=== PATIENT | male | born 1955 | race African-American/Black ===

== ENCOUNTER 2018-08-07 07:18 | Emergency (ER) | payer MEDICAID ==
[2018-08-07] MEDS ORDERED: KETOROLAC TROMETHAMINE 60 MG/2 ML SDV IM ONE (08:17)
[2018-08-07] MEDS ORDERED: FENTANYL CITRATE INJ/PF 100 MCG/2 ML AMPUL IM ONE (08:17)
--- NOTE | 2018-08-07 08:19 | ER Document Report ---
ED Extremity Problem, Lower - General Chief Complaint: Leg Pain Stated Complaint: THIGH PAIN Time Seen by Provider: 08/07/18 07:44 Notes: 62-year-old male to the emergency department complaining of pain in the left buttock region radiating down the back of his left leg/thigh. States the symptoms have been present for over 1 month had ultrasound of his leg a few weeks ago which was negative for DVT. Was told to use anti-inflammatories. States that he needs something stronger. TRAVEL OUTSIDE OF THE [place] IN LAST 30 DAYS: No - HPI Patient complains to provider of: Pain Occurred: Other - Over 1 month ago Where: Home Quality of pain: Achy Severity: Moderate Pain Level: 3 - Related Data Allergies/Adverse Reactions: No Known Allergies Allergy (Verified 08/07/18 07:19) Past Medical History - General Information source: Patient - Social History Smoking Status: Never Smoker Frequency of alcohol use: None Drug Abuse: None Lives with: Family Family History: Reviewed & Not Pertinent, Other - Dementia Patient has suicidal ideation: No Patient has homicidal ideation: No - Past Medical History Cardiac Medical History: Reports: Hx Hypertension Renal/ Medical History: Denies: Hx Peritoneal Dialysis Musculoskeletal Medical History: Reports Hx Gout Traumatic Medical History: Reports: Hx Fractures - left tibia Past Surgical History: Reports: Hx Orthopedic Surgery - Right ACL reconstruction - Immunizations Hx Diphtheria, Pertussis, Tetanus Vaccination: Yes - 2012 Review of Systems - Review of Systems Notes: Constitutional: denies: Chills, Diaphoresis, Fever, Malaise, Weakness EENT: denies: Eye discharge, Blurred vision, Tearing, Double vision, Nose congestion, Nose discharge, Throat swelling, Mouth pain Cardiovascular: denies: Palpitations, Heart racing, Orthopnea, Dyspnea, Chest pain Respiratory: denies: Cough, Hurts to breathe, Wheezing, Shortness of breath Gastrointestinal: denies: Abdominal pain, Diarrhea, Nausea, Vomiting, Black stools, bright red blood in stool Genitourinary: denies: Burning, Dysuria, Discharge, Frequency, Flank pain, Hematuria Musculoskeletal: Mild left lumbar back pain, radiculopathy down the left leg with pain in the left leg in the posterior thigh Hematologic/Lymphatic: denies: Anemia, Easy bleeding, Easy bruising, Blood clots Neurological/Psychological: denies: Confusion, Dementia, Depression, Loss of consciousness Skin: No lesions, no masses, no skin breakdown, no abscesses Physical Exam - Vital signs Vitals: Temp Pulse Resp BP Pulse Ox 97.3 F 77 20 166/96 H 98 08/07/18 07:22 08/07/18 07:22 08/07/18 07:22 08/07/18 07:22 08/07/18 07:22 Interpretation: Normal - General General appearance: Appears well, Alert - HEENT Head: Normocephalic, Atraumatic Eyes: Normal Pupils: PERRL - Respiratory Respiratory status: No respiratory distress Chest status: Nontender Breath sounds: Normal Chest palpation: Normal - Cardiovascular Rhythm: Regular Heart sounds: Normal auscultation Murmur: No - Abdominal Inspection: Normal Distension: No distension Bowel sounds: Normal Tenderness: Nontender Organomegaly: No organomegaly - Back Back: Normal, Nontender Notes: There is positive straight leg when raising the left leg. There is pain with adduction of the left leg where pain is most prominent in the piriformis and gluteus muscle on the left. - Extremities General upper extremity: Normal inspection, Nontender, Normal color, Normal ROM , Normal temperature General lower extremity: Normal inspection, Normal color, Normal ROM, Normal temperature, Normal weight bearing, Other - The left lower extremity demonstrates no edema. There is no Homans sign. There is no swelling or tenderness in the calf. Pulses are present in the dorsalis pedis and posterior tibialis of the left.. No: Emmy's sign - Neurological Neuro grossly intact: Yes Cognition: Normal Orientation: AAOx4 Christoph Coma Scale Eye Opening: Spontaneous [place] Coma Scale Verbal: Oriented [place] Coma Scale Motor: Obeys Commands Christoph Coma Scale Total: 15 Speech: Normal Motor strength normal: LUE, RUE, LLE, RLE Sensory: Normal - Psychological Associated symptoms: Normal affect, Normal mood - Skin Skin Temperature: Warm Skin Moisture: Dry Skin Color: Normal Course - Re-evaluation Re-evalutation: 08/07/18 10:[address] 08/07/18 08:18 IMPRESSION: Diffuse degenerative changes lumbar spine. Diffuse degenerative changes in the lumbar spine but nothing acute. Patient having symptoms of radiculopathy. Patient is having no specific pain in the leg which is concerning for DVT. Has already had an ultrasound which was negative so unlikely this represent a blood clot. Patient has one finger placed at his low back and in the piriformis muscle at the area of worsening pain. At this time we will discharge and have him follow-up with his regular doctor. - Vital Signs Vital signs: Temp Pulse Resp BP Pulse Ox 97.3 F 77 20 166/96 H 98 08/07/18 07:22 08/07/18 07:22 08/07/18 07:22 08/07/18 07:22 08/07/18 07:22 Discharge - Discharge Clinical Impression: Low back pain radiating to left leg Condition: Good Disposition: HOME, SELF-CARE Instructions: Radiculopathy ([facility]), Sciatica ([facility]) Additional Instructions: In the event that you develop any swelling of the leg, pain in the calf, fever, shortness of breath or worsening symptoms please return for repeat evaluation. Referrals: YOUSUF WILKINS DO [Primary Care Provider] - Follow up as needed
--- NOTE | 2018-08-07 09:15 | RADIOLOGY REPORT (SQ) ---
EXAM DESCRIPTION: CT LUMBAR SPINE WITHOUT COMPLETED DATE/TIME: 08/07/2018 8:59 am REASON FOR STUDY: back pain and left leg radiculopathy COMPARISON: None. TECHNIQUE: Axial images acquired through the lumbar spine without intravenous contrast. Images revi ewed with lung, soft tissue and bone windows. Reconstructed coronal and sagittal MPR images reviewed . All images stored on PACS. All CT scanners at this facility use dose modulation, iterative reconstruction, and/or weight based d osing when appropriate to reduce radiation dose to as low as reasonably achievable (ALARA). [facility]: Dose Right [facility]: CareDose [facility]: Dose Right [facility]: Teradose 4D [facility]: [email or web address] RADIATION DOSE: 18.2 mGy. LIMITATIONS: None. FINDINGS: SEGMENTATION: Normal. Sacralization of L5 with a small L5-S1 disc space. ALIGNMENT: Minimal retrolisthesis of L3 over L4 VERTEBRAL BODIES: No fractures. No dislocation. No acute findings. DISCS: The T12-L1 and L1-2 levels are unremarkable. At L2-3, moderate central canal stenosis results from broad diffuse posterior disc bulging and bony s purring along with bulky bilateral facet and ligament hypertrophy. This is best shown on axial image 38 and sagittal image 24. There is mild bilateral inferior foraminal narrowing without exiting L2 n erve root impingement. At L3-4, moderate central canal stenosis results from broad diffuse posterior disc bulge and bony spu rring left greater than right, and bulky bilateral facet and ligament hypertrophy. Asymmetric flatte arturo of the leftward thecal sac at the takeoff of the proximal left L4 nerve root in the lateral rece ss. There is mild right foraminal narrowing. High-grade left foraminal narrowing at L3-4 with parti al effacement of fat around the exiting left L3 nerve root. At L4-5, moderate central canal stenosis results from broad diffuse posterior disc bulge and bony spu rring and moderate bilateral facet and ligament hypertrophy. There is flattening of the thecal sac b ilaterally in the lateral recesses containing the proximal L5 nerve roots. There is moderate right L 4-5 foraminal narrowing without definite exiting right L4 nerve root impingement. High-grade left L4 -5 foraminal stenosis is present with partial effacement of the fat around the exiting left L4 nerve root. Small disc space at L5-S1 without significant central or foraminal stenosis. PEDICLES, TRANSVERSE PROCESSES: No fractures. No dislocation. No acute findings. FACETS, POSTERIOR ELEMENTS: No fractures. No dislocation. HARDWARE: None in the spine. VISUALIZED RIBS: No fractures. SOFT TISSUES: No significant or acute finding in adjacent soft tissues. OTHER: No other significant finding. IMPRESSION: Diffuse degenerative changes lumbar spine. TECHNICAL DOCUMENTATION: JOB ID: [id number] Quality ID # [id number]: Final reports with documentation of one or more dose reduction techniques (e.g., Au tomated exposure control, adjustment of the mA and/or kV according to patient size, use of iterative reconstruction technique) 2010 [employer]- All Rights Reserved Reading location - IP/workstation name: [email or web address]
[2018-08-07] MEDS ORDERED: HYDROCODONE/ACETAMINOPHEN 5-325 MG (6 TAB/ER DISP) PO PRN (10:13)
[2018-08-07 10:28] VITALS: BP 150/85
== END 2018-08-07 10:29 | disposition home or self-care (01) ==
LOC: ER 07:18
DX: M47.896 Other spondylosis, lumbar region (principal); M54.5 Low back pain; M79.662 Pain in left lower leg
CPT/HCPCS: 99284; 96372; 72131; J1885; J3010

== ENCOUNTER 2018-08-13 05:51 | Emergency (ER) | payer MEDICAID ==
[2018-08-13] MEDS ORDERED: KETOROLAC TROMETHAMINE 60 MG/2 ML SDV IM ONE (07:29)
--- NOTE | 2018-08-13 07:33 | ER Document Report ---
HPI - HPI Patient complains to provider of: Low back pain Onset: Other - 1 month Onset/Duration: Persistent Quality of pain: Achy Pain Level: 4 Context: Patient presents complaining of low back pain that radiates into the left thigh for the past month. Patient states that he has not been able to follow-up with his primary doctor due to the weather as it does have an upcoming appointment. Patient denies any new injury. Associated Symptoms: Other - Back pain, leg pain Exacerbated by: Movement Relieved by: Denies Similar symptoms previously: Yes Recently seen / treated by doctor: Yes - ROS ROS below otherwise negative: Yes Systems Reviewed and Negative: Yes All other systems reviewed and negative - CONSTITUTIONAL Constitutional: DENIES: Fever, Chills - NEURO Neurology: DENIES: Weakness - URINARY Urinary: DENIES: Dysuria - MUSCULOSKELETAL Musculoskeletal: REPORTS: Extremity pain - left thigh, Back Pain - DERM Skin Color: Normal Skin Problems: None Past Medical History - General Information source: Patient - Social History Smoking Status: Never Smoker Frequency of alcohol use: Rare Drug Abuse: None Occupation: None Lives with: Family Family History: Reviewed & Not Pertinent, Other - Dementia Patient has suicidal ideation: No Patient has homicidal ideation: No - Past Medical History Cardiac Medical History: Reports: Hx Hypercholesterolemia, Hx Hypertension Renal/ Medical History: Denies: Hx Peritoneal Dialysis Musculoskeletal Medical History: Reports Hx Gout, Reports Other - Low back pain Traumatic Medical History: Reports: Hx Fractures - left tibia Past Surgical History: Reports: Hx Orthopedic Surgery - Right ACL reconstruction - Immunizations Hx Diphtheria, Pertussis, Tetanus Vaccination: Yes - 2013 [facility] Provider Document - CONSTITUTIONAL Agree With Documented VS: Yes Exam Limitations: No Limitations General Appearance: WD/WN, No Apparent Distress - INFECTION CONTROL TRAVEL OUTSIDE OF THE [place] IN LAST 30 DAYS: No - HEENT HEENT: Atraumatic, Normocephalic - NECK Neck: Normal Inspection, Supple. negative: Lymphadenopathy-Left, Lymphadenopathy-Right - RESPIRATORY Respiratory: Breath Sounds Normal, No Respiratory Distress - CARDIOVASCULAR Cardiovascular: Regular Rate, Regular Rhythm, No Murmur - BACK Back: Abnormal Inspection - left lower lumbar spinal tenderness, no step off or deformity, pain over left piriformis Notes: +SLT on the left, no saddle anesthesia - MUSCULOSKELETAL/EXTREMETIES Musculoskeletal/Extremeties: MAEW - NEURO Level of Consciousness: Awake, Alert, Appropriate Motor/Sensory: No Motor Deficit - DERM Integumentary: Warm, Dry, No Rash Course - Re-evaluation Re-evalutation: 08/13/18 The patient presents with low back pain without signs of spinal cord compression , cauda equina syndrome, infection, aneurysm, or other serious etiology. The patient is neurologically intact. Given the extremely risk of these diagnoses further testing and evaluation for these possibilities does not appear to be indicated at this time. Patient has been instructed to return if the symptoms worsen or change in any way. - Vital Signs Vital signs: Temp Pulse Resp BP Pulse Ox 97.9 F 80 18 161/90 H 97 08/13/18 05:51 08/13/18 05:51 08/13/18 05:51 08/13/18 05:51 08/13/18 05:51 Discharge - Discharge Clinical Impression: Sciatica Qualifiers: Laterality: left Qualified Code(s): M54.32 - Sciatica, left side Condition: Stable Disposition: HOME, SELF-CARE Instructions: Oral Narcotic Medication ([facility]), Sciatica ([facility]), Toradol Injection ([facility]) Additional Instructions: return as needed for any new or worsening symptoms follow up with your primary care provider as planned Prescriptions: Hydrocodone/Acetaminophen [[place] 5-325 Tablet] 1 each PO Q4 PRN #15 tablet PRN Reason: Prednisone [Deltasone 20 mg Tablet] 3 tab PO DAILY 5 Days tablet Referrals: MALIK WILLIAM PA-C [PHYSICIAN [facility]] - Follow up tomorrow
[2018-08-13 07:58] VITALS: BP 148/92
== END 2018-08-13 08:04 | disposition home or self-care (01) ==
LOC: ER 05:51
DX: M54.32 Sciatica, left side (principal); M54.5 Low back pain; E78.00 Pure hypercholesterolemia, unspecified; I10 Essential (primary) hypertension
CPT/HCPCS: 99283; 96372; J1885